=== PATIENT | male | born 1950 | race Caucasian/White ===

== ENCOUNTER 2016-05-24 20:19 | Emergency (ER) | payer MEDICARE, BC ==
[2006-07-03 04:04] VITALS: BP 110/66
[~2016-05-24] VITALS: Ht 177.8 cm; Wt 90.9 kg
[~2016-05-24 20:19] MED LIST: ANTIVERT 25MG25 MG PO; ASPIR-LOW81 MG PO; ASPIRIN E.C. 8181 MG PO; BENAZEPRIL PO; BENAZEPRIL10 MG PO; BUPROPION HCL150 M1 PO; CIPRO 500MG TA500 MG PO; EPA1000 MG PO; FLONASE NASAL S16 GM NS; KEPPRA 500MG500 MG PO; KEPPRA750 MG PO; KETOROLAC10 MG PO; LOTENSIN 1010 MG/TAB PO; MULTIVITAMIN PO; NATURE'S BL400 IU/ML PO; NEXIUM 40MG40 MG PEG; NORVASC 10MG10 MG PO; ONE DAILY1 TA1 PO; PRILOSEC 20MG20 MG PO; SAW PALMETTO160 MG PO; SAW PALMETTO450 MG PO; TEMAZEPAM15 MG PO; VITAMIN D1000 IU PO; XANAX 0.5MG0.5 MG PO; [UNRECOGNIZED DRUG - OTHER] PO
[2016-05-24 20:25] VITALS: TEMP 97.5
[2016-05-24 21:02] LABS: BASO # 0.1 (0.0-0.2); BASO % 0.8 % (0.0-2.0); EOS # 0.1 (0.0-0.7); EOS % 1.1 % (0-4.0); GRAN % 54.5 % (42.2-75.2); HEMOGLOBIN 15.6 g/dl (13.5-18.0); LYMPH # 2.6 (1.2-3.4); LYMPH % 35.6 % (20.0-51.0); MEAN CELL VOLUME 91 fl (80.0-100.0); MEAN CORPUSCULAR HEMOGLOBIN 31 pg (27.0-31.0); MEAN CORPUSCULAR HGB CONC 34 g/dl (33.0-37.0); MEAN PLATELET VOLUME 12.2 fl (7.4-10.4); MONO # 0.6 (0.1-0.6); MONO % 7.7 % (1.7-9.3); PLATELET COUNT 167 K/mm3 (130-400); RED BLOOD COUNT 5.04 M/mm3 (4.20-5.60); REDCELL DISTRIBUTION WIDTH-CV 13.6 % (11.5-14.5); WHITE BLOOD COUNT 7.3 K/mm3 (4.8-10.8)
[2016-05-24 21:23] LABS: ADJUSTED CALCIUM 9.8 mg/dL (8.4-10.2); ALANINE AMINOTRANSFERASE 35 U/L (21-72); ALBUMIN 4.8 gm/dL (3.5-5.0); ALKALINE PHOSPHATASE 127 U/L (50-136); ANION GAP 10 mmol/L (7-16); BILIRUBIN,TOTAL 0.8 mg/dL (0.0-1.0); BLOOD UREA NITROGEN 17 mg/dL (9-20); CALCIUM 10.4 mg/dL (8.4-10.2); CARBON DIOXIDE 25 mmol/L (22-30); CHLORIDE 104 mmol/L (98-107); CREATININE, serum 0.78 mg/dL (0.66-1.25); GLUCOSE 95 mg/dL (74-106); POTASSIUM 3.6 mmol/L (3.4-5.0); SODIUM 140 mmol/L (137-145); TOTAL PROTEIN 7.5 gm/dL (6.4-8.2)
[2016-05-24] MEDS ORDERED: HCTZ 25MG TAB25 MG PO (21:23)
[2016-05-24 21:38] LABS: TROPONIN-I < 0.012 ng/mL (0.000-0.034)
[2016-05-24 22:06] VITALS: BP 144/79; PULSE 84
== END 2016-05-24 22:15 | disposition home or self-care (01) ==
LOC: COL.ER 20:19
PROVIDERS: Family Medicine
DX: I10 Essential (primary) hypertension (principal)

== ENCOUNTER 2016-06-28 20:23 | Emergency (ER) | payer MEDICARE, BC ==
[2006-07-03 04:04] VITALS: BP 110/66
[~2016-06-28] VITALS: Ht 177.8 cm; Wt 95.5 kg
[~2016-06-28 20:23] MED LIST changes: +HCTZ 25MG TAB25 MG PO
[2016-06-28] MEDS ORDERED: PRILOSEC 20MG20 MG PO (20:27)
[2016-06-28] MEDS ORDERED: ATIVAN 0.50.5 MG/TAB PO (20:28)
[2016-06-28] MEDS ORDERED: PAXIL 10MG10 MG PO (20:28)
[2016-06-28] MEDS ORDERED: PAXIL 20MG20 MG PO (20:39)
[2016-06-28] MEDS ORDERED: ZOFRAN8 MG PO (20:57)
[2016-06-28 21:37] VITALS: BP 147/90; PULSE 85; TEMP 98.7
== END 2016-06-28 22:30 | disposition home or self-care (01) ==
LOC: COL.ER 20:23
DX: R10.84 Generalized abdominal pain (principal)

== ENCOUNTER 2017-10-11 20:48 | Inpatient (IN) | payer MEDICARE, BC ==
[~2017-10-11] VITALS: Ht 177.8 cm; Wt 96.4 kg
[2017-10-11] VITALS (57 sets, daily range): BP systolic 123; BP diastolic 82; PULSE 59; TEMP 97.2; O2SAT 92–100
[~2017-10-11 20:48] MED LIST changes: +ATIVAN 0.50.5 MG/TAB PO; +PAXIL 10MG10 MG PO; +PAXIL 20MG20 MG PO; +ZOFRAN8 MG PO
[2017-10-11] MEDS ORDERED: CALCIUM CARBON650 M2 PO (21:09)
[2017-10-11] MEDS ORDERED: NATURAL L-LYSI500 MG PO (21:09)
[2017-10-11] MEDS ORDERED: MAGNESIUM200 MG PO (21:10)
[2017-10-11 21:24] LABS: BASO % 0.5 % (0.0-2.0); EOS # 0.2 (0.0-0.7); EOS % 2.6 % (0-4.0); GRAN # 3.1 (1.4-6.5); GRAN % 52.1 % (42.2-75.2); HEMATOCRIT 40.5 % (42.0-52.0); HEMOGLOBIN 13.7 g/dl (13.5-18.0); LYMPH # 2.1 (1.2-3.4); LYMPH % 35.6 % (20.0-51.0); MEAN CELL VOLUME 95 fl (80.0-100.0); MEAN CORPUSCULAR HEMOGLOBIN 32 pg (27.0-31.0); MEAN CORPUSCULAR HGB CONC 34 g/dl (33.0-37.0); MEAN PLATELET VOLUME 11.8 fl (7.4-10.4); MONO # 0.5 (0.1-0.6); MONO % 8.9 % (1.7-9.3); PLATELET COUNT 145 K/mm3 (130-400); RED BLOOD COUNT 4.26 M/mm3 (4.20-5.60); REDCELL DISTRIBUTION WIDTH-CV 13.5 % (11.5-14.5)
[2017-10-11 21:30] LABS: INR 0.9 (0.8-3.0); PROTHROMBIN TIME 10.7 SECONDS (9.7-12.8)
[2017-10-11 21:32] LABS: PARTIAL THROMBOPLASTIN TIME 35.6 SECONDS (26.0-37.0)
[2017-10-11 21:34] LABS: ALBUMIN 3.5 gm/dL (3.5-5.0); BILIRUBIN,TOTAL 0.4 mg/dL (0.0-1.0); CREATININE, serum 0.81 mg/dL (0.66-1.25); POTASSIUM 3.7 mmol/L (3.4-5.0); TOTAL PROTEIN 5.9 gm/dL (6.4-8.2)
[2017-10-11 21:47] LABS: TROPONIN-I 0.056 ng/mL (0.000-0.034)
[2017-10-12] VITALS (766 sets, daily range): BP systolic 101–144; BP diastolic 56–77; PULSE 45–60; TEMP 97.1–98; O2SAT 86–100
[2017-10-12 06:08] LABS: BASO % 0.5 % (0.0-2.0); EOS # 0.1 (0.0-0.7); EOS % 2.4 % (0-4.0); GRAN # 2.5 (1.4-6.5); GRAN % 46.3 % (42.2-75.2); HEMATOCRIT 39.8 % (42.0-52.0); HEMOGLOBIN 13.3 g/dl (13.5-18.0); LYMPH # 2.3 (1.2-3.4); LYMPH % 41.4 % (20.0-51.0); MEAN CELL VOLUME 97 fl (80.0-100.0); MEAN CORPUSCULAR HEMOGLOBIN 32 pg (27.0-31.0); MEAN CORPUSCULAR HGB CONC 33 g/dl (33.0-37.0); MEAN PLATELET VOLUME 12.4 fl (7.4-10.4); MONO # 0.5 (0.1-0.6); MONO % 9.2 % (1.7-9.3); PLATELET COUNT 136 K/mm3 (130-400); RED BLOOD COUNT 4.12 M/mm3 (4.20-5.60); REDCELL DISTRIBUTION WIDTH-CV 13.7 % (11.5-14.5)
[2017-10-12 06:23] LABS: ALBUMIN 3.1 gm/dL (3.5-5.0); BILIRUBIN,TOTAL 0.5 mg/dL (0.0-1.0); CALCIUM 8.8 mg/dL (8.4-10.2); CHOLESTEROL RISK RATIO 3.7; CREATININE, serum 0.79 mg/dL (0.66-1.25); POTASSIUM 4.2 mmol/L (3.4-5.0); TOTAL PROTEIN 5.3 gm/dL (6.4-8.2)
[2017-10-12 06:24] LABS: COLLECTION METHOD CLEAN CATCH
[2017-10-12 06:37] LABS: PH 7 (5-8); SQUAMOUS EPITHELIAL 0-2 /hpf; URINE APPEARANCE Hazy; URINE BACTERIA Rare /hpf; URINE BILIRUBIN Negative (NEGATIVE); URINE BLOOD Negative (NEGATIVE); URINE COLOR Yellow; URINE GLUCOSE Negative (NEGATIVE); URINE KETONE Negative (NEGATIVE); URINE LEUKOCYTE ESTERASE Negative (NEGATIVE); URINE NITRATE Negative (NEGATIVE); URINE PROTEIN(semi-quant) Negative (NEGATIVE); URINE RBC 0-2 /hpf; URINE UROBILINOGEN Negative (NEGATIVE)
[2017-10-12 06:49] LABS: TROPONIN-I 0.245 ng/mL (0.000-0.034)
[2017-10-13] VITALS (14 sets, daily range): BP systolic 118–140; BP diastolic 64–83; PULSE 56–61; TEMP 97.2–98.1; O2SAT 95–99
[2017-10-13 06:02] LABS: BASO % 0.5 % (0.0-2.0); EOS # 0.2 (0.0-0.7); EOS % 2.2 % (0-4.0); GRAN # 5.5 (1.4-6.5); GRAN % 67.2 % (42.2-75.2); HEMATOCRIT 40.9 % (42.0-52.0); HEMOGLOBIN 13.7 g/dl (13.5-18.0); LYMPH # 1.8 (1.2-3.4); LYMPH % 21.8 % (20.0-51.0); MEAN CELL VOLUME 97 fl (80.0-100.0); MEAN CORPUSCULAR HEMOGLOBIN 33 pg (27.0-31.0); MEAN CORPUSCULAR HGB CONC 34 g/dl (33.0-37.0); MEAN PLATELET VOLUME 11.8 fl (7.4-10.4); MONO # 0.7 (0.1-0.6); MONO % 8.1 % (1.7-9.3); PLATELET COUNT 135 K/mm3 (130-400); RED BLOOD COUNT 4.22 M/mm3 (4.20-5.60); REDCELL DISTRIBUTION WIDTH-CV 13.9 % (11.5-14.5)
[2017-10-13 06:15] LABS: CALCIUM 8.5 mg/dL (8.4-10.2); CREATININE, serum 0.7 mg/dL (0.66-1.25)
[2017-10-13] MEDS ORDERED: BRILINTA90 MG PO (09:19)
[2017-10-13] MEDS ORDERED: NITROSTAT0.4 MG/TAB SL (09:20)
[2017-10-13] MEDS ORDERED: LOPRESSOR 225 MG/TAB PO (09:20)
[2017-10-13] MEDS ORDERED: LIPITOR 80MG80 MG PO (09:20)
[2017-10-13] MEDS ORDERED: ASPIRIN E.C. 8181 MG PO (09:21)
[2017-10-13] MEDS ORDERED: ZESTRIL 5MG5 MG PO (09:22)
== END 2017-10-13 11:00 | disposition home or self-care (01) | DRG 247 ==
LOC: COL.ER 20:48 → ICU 22:21
PROVIDERS: Emergency Medicine; Nurse Practitioner; Nurse Practitioner Family
PROC: 027034Z Dilation of Coronary Artery, One Artery with Drug-eluting Intraluminal Device, Percutaneous Approach (ICD-10-PCS; principal; 2017-10-12)
PROC: B2111ZZ Fluoroscopy of Multiple Coronary Arteries using Low Osmolar Contrast (ICD-10-PCS; 2017-10-12)
DX: I21.4 Non-ST elevation (NSTEMI) myocardial infarction (principal); Q23.1 Congenital insufficiency of aortic valve; I10 Essential (primary) hypertension; Z85.46 Personal history of malignant neoplasm of prostate; B91 Sequelae of poliomyelitis; I25.10 Atherosclerotic heart disease of native coronary artery without angina pectoris
CPT/HCPCS: 99223-AI; 99239; C9600; J0583; J1650; J2250; J3010; J7030; Q9967

== ENCOUNTER 2017-10-23 22:55 | Emergency (ER) | payer MEDICARE, BC ==
[2006-07-03 04:04] VITALS: BP 110/66
[~2017-10-23] VITALS: Ht 177.8 cm; Wt 90.9 kg
[~2017-10-23 22:55] MED LIST changes: +BRILINTA90 MG PO; +CALCIUM CARBON650 M2 PO; +LIPITOR 80MG80 MG PO; +LOPRESSOR 225 MG/TAB PO; +MAGNESIUM200 MG PO; +NATURAL L-LYSI500 MG PO; +NITROSTAT0.4 MG/TAB SL; -PAXIL 20MG20 MG PO; +ZESTRIL 5MG5 MG PO
[2017-10-23 23:01] VITALS: TEMP 96.7
[2017-10-23 23:17] LABS: BASO # 0.1 (0.0-0.2); BASO % 0.5 % (0.0-2.0); EOS # 0.2 (0.0-0.7); EOS % 2.3 % (0-4.0); GRAN # 5.1 (1.4-6.5); GRAN % 55.4 % (42.2-75.2); HEMATOCRIT 42.7 % (42.0-52.0); HEMOGLOBIN 14.7 g/dl (13.5-18.0); LYMPH % 32.7 % (20.0-51.0); MEAN CELL VOLUME 93 fl (80.0-100.0); MEAN CORPUSCULAR HEMOGLOBIN 32 pg (27.0-31.0); MEAN CORPUSCULAR HGB CONC 34 g/dl (33.0-37.0); MEAN PLATELET VOLUME 12.3 fl (7.4-10.4); MONO # 0.8 (0.1-0.6); MONO % 8.9 % (1.7-9.3); PLATELET COUNT 188 K/mm3 (130-400); REDCELL DISTRIBUTION WIDTH-CV 13.2 % (11.5-14.5)
[2017-10-23 23:23] LABS: INR 1.1 (0.8-3.0)
[2017-10-23 23:26] LABS: PARTIAL THROMBOPLASTIN TIME 38.2 SECONDS (26.0-37.0)
[2017-10-23 23:27] LABS: ALANINE AMINOTRANSFERASE 36 U/L (21-72); ALBUMIN 4.7 gm/dL (3.5-5.0); ALKALINE PHOSPHATASE 141 U/L (50-136); ANION GAP 15 mmol/L (7-16); AST,SGOT 25 U/L (15-37); BILIRUBIN,TOTAL 1.1 mg/dL (0.0-1.0); BLOOD UREA NITROGEN 18 mg/dL (9-20); CALCIUM 10.2 mg/dL (8.4-10.2); CARBON DIOXIDE 24 mmol/L (22-30); CHLORIDE 100 mmol/L (98-107); CREATININE, serum 0.83 mg/dL (0.66-1.25); GLUCOSE 103 mg/dL (74-106); LIPASE 128 U/L (23-300); POTASSIUM 3.5 mmol/L (3.4-5.0); SODIUM 138 mmol/L (137-145)
[2017-10-23 23:40] LABS: TROPONIN-I < 0.012 ng/mL (0.000-0.034)
[2017-10-24] MEDS ORDERED: TYLENOL 500MG500 MG PO (00:22)
[2017-10-24 05:10] VITALS: BP 112/68; PULSE 53
== END 2017-10-24 05:13 | disposition home or self-care (01) ==
LOC: COL.ER 22:55
PROVIDERS: Emergency Medicine
DX: R07.89 Other chest pain (principal); F41.9 Anxiety disorder, unspecified; K21.9 Gastro-esophageal reflux disease without esophagitis; I10 Essential (primary) hypertension; E78.5 Hyperlipidemia, unspecified; I25.2 Old myocardial infarction; I25.10 Atherosclerotic heart disease of native coronary artery without angina pectoris; Z95.5 Presence of coronary angioplasty implant and graft
CPT/HCPCS: J2060; J2405; J7030; Q9967

== ENCOUNTER 2018-11-25 09:57 | Emergency (ER) | payer MEDICARE, BC ==
[2006-07-03 04:04] VITALS: BP 110/66
[~2018-11-25] VITALS: Ht 177.8 cm; Wt 93.2 kg
[~2018-11-25 09:57] MED LIST changes: +PLAVIX 75MG TAB75 MG PO; +PROTONIX20 MG PO; +TOPROL XL 25MG25 MG PO; +TYLENOL 500MG500 MG PO; +ZOFRAN ODT4 MG PO
[2018-11-25 10:01] VITALS: TEMP 97
[2018-11-25 10:19] LABS: BASO % 0.5 % (0.0-2.0); EOS # 0.1 (0.0-0.7); EOS % 1.3 % (0-4.0); GRAN # 3.7 (1.4-6.5); GRAN % 60.1 % (42.2-75.2); HEMATOCRIT 44.9 % (42.0-52.0); HEMOGLOBIN 14.9 g/dl (13.5-18.0); LYMPH # 1.9 (1.2-3.4); MEAN CELL VOLUME 98 fl (80.0-100.0); MEAN CORPUSCULAR HEMOGLOBIN 32 pg (27.0-31.0); MEAN CORPUSCULAR HGB CONC 33 g/dl (33.0-37.0); MEAN PLATELET VOLUME 11.9 fl (7.4-10.4); MONO # 0.5 (0.1-0.6); MONO % 7.9 % (1.7-9.3); PLATELET COUNT 149 K/mm3 (130-400); REDCELL DISTRIBUTION WIDTH-CV 13.9 % (11.5-14.5)
[2018-11-25 10:27] LABS: ALANINE AMINOTRANSFERASE 23 U/L (21-72); ALBUMIN 4.5 gm/dL (3.5-5.0); ALKALINE PHOSPHATASE 112 U/L (50-136); ANION GAP 9 mmol/L (7-16); AST,SGOT 25 U/L (15-37); BILIRUBIN,TOTAL 0.6 mg/dL (0.0-1.0); BLOOD UREA NITROGEN 19 mg/dL (9-20); CALCIUM 9.5 mg/dL (8.4-10.2); CARBON DIOXIDE 30 mmol/L (22-30); CHLORIDE 105 mmol/L (98-107); CREATININE, serum 0.71 (0.66-1.25); GLUCOSE 99 mg/dL (74-106); LIPASE 89 U/L (23-300); SODIUM 143 mmol/L (137-145)
[2018-11-25 10:49] LABS: TROPONIN-I < 0.012 ng/mL (0.000-0.035)
[2018-11-25] MEDS ORDERED: LOPRESSOR 225 MG/TAB PO (13:39)
[2018-11-25] MEDS ORDERED: CARAFATE 1GM1 G PO (13:57)
[2018-11-25 14:09] VITALS: BP 104/66; PULSE 55
== END 2018-11-25 14:09 | disposition home or self-care (01) ==
LOC: COL.ER 09:57
PROVIDERS: Emergency Medicine
DX: R10.13 Epigastric pain (principal); R07.9 Chest pain, unspecified; I10 Essential (primary) hypertension; E78.5 Hyperlipidemia, unspecified; K21.9 Gastro-esophageal reflux disease without esophagitis; I25.10 Atherosclerotic heart disease of native coronary artery without angina pectoris; Z79.82 Long term (current) use of aspirin; Z79.02 Long term (current) use of antithrombotics/antiplatelets; Z86.73 Personal history of transient ischemic attack (TIA), and cerebral infarction without residual deficits; Z95.5 Presence of coronary angioplasty implant and graft
CPT/HCPCS: C9113; J2270; J2405; J7030

== ENCOUNTER 2021-08-22 22:10 | Observation (INO) | payer MEDICARE, BC ==
[~2021-08-22] VITALS: Ht 177.8 cm; Wt 88.4 kg
[~2021-08-22 22:10] MED LIST changes: +CARAFATE 1GM1 G PO
[2021-08-22 22:46] LABS: BASO % 0.4 % (0.0-2.0); EOS # 0.1 K/mm3 (0.0-0.7); EOS % 2.1 % (0.0-4.0); GRAN # 2.4 K/mm3 (1.4-6.5); GRAN % 45.7 % (42.2-75.2); HEMATOCRIT 39.3 % (42.0-52.0); HEMOGLOBIN 13.6 g/dl (13.5-18.0); LYMPH # 2.1 K/mm3 (1.2-3.4); MEAN CELL VOLUME 98 fl (80.0-100.0); MEAN CORPUSCULAR HEMOGLOBIN 34 pg (27-31); MEAN CORPUSCULAR HGB CONC 35 g/dl (33.0-37.0); MEAN PLATELET VOLUME 11.6 fl (7.4-10.4); MONO # 0.6 K/mm3 (0.1-0.6); MONO % 10.6 % (1.7-9.3); PLATELET COUNT 130 K/mm3 (130-400); REDCELL DISTRIBUTION WIDTH-CV 13.4 % (11.5-14.5)
[2021-08-22 23:01] LABS: ALANINE AMINOTRANSFERASE 31 U/L (0-55); ALBUMIN 4.3 gm/dL (3.4-4.8); ALKALINE PHOSPHATASE 117 U/L (40-150); ANION GAP 9 mmol/L (7-16); AST,SGOT 22 U/L (5-34); BILIRUBIN,TOTAL 0.5 mg/dL (0.2-1.2); BLOOD UREA NITROGEN 21 mg/dL (8-26); CALCIUM 9.2 mg/dL (8.4-10.2); CARBON DIOXIDE 25 mmol/L (23-31); CHLORIDE 108 mmol/L (98-107); CREATININE, serum 0.82 mg/dL (0.72-1.25); GLUCOSE 104 mg/dL (70-99); SODIUM 142 mmol/L (136-145); TOTAL PROTEIN 6.2 gm/dL (6.2-8.1)
[2021-08-22 23:10] LABS: TROPONIN-I < 0.010 ng/mL (0.00-0.033)
[2021-08-23] MEDS ORDERED: MAGNESIUM200 MG PO (01:44)
[2021-08-23] MEDS ORDERED: PROTONIX 40MG T40 MG PO (01:45)
[2021-08-23] MEDS ORDERED: COZAAR 25MG25 MG/TAB PO (01:52)
[2021-08-23] MEDS ORDERED: TOPROL XL 25MG25 MG PO (02:05)
[2021-08-23 02:30] LABS: PROTHROMBIN TIME 11.2 SECONDS (9.7-12.8)
[2021-08-23 02:33] LABS: PARTIAL THROMBOPLASTIN TIME 30.5 SECONDS (26.0-37.0)
[2021-08-23 06:55] LABS: BASO % 0.5 % (0.0-2.0); EOS # 0.1 K/mm3 (0.0-0.7); EOS % 2.4 % (0.0-4.0); GRAN # 1.8 K/mm3 (1.4-6.5); HEMOGLOBIN 13.1 g/dl (13.5-18.0); LYMPH # 1.8 K/mm3 (1.2-3.4); LYMPH % 44.3 % (20.0-51.0); MEAN CELL VOLUME 100 fl (80.0-100.0); MEAN CORPUSCULAR HEMOGLOBIN 34 pg (27-31); MEAN CORPUSCULAR HGB CONC 34 g/dl (33.0-37.0); MEAN PLATELET VOLUME 12.3 fl (7.4-10.4); MONO # 0.4 K/mm3 (0.1-0.6); MONO % 9.6 % (1.7-9.3); PLATELET COUNT 118 K/mm3 (130-400); RED BLOOD COUNT 3.91 M/mm3 (4.20-5.60); REDCELL DISTRIBUTION WIDTH-CV 13.6 % (11.5-14.5)
[2021-08-23 07:14] LABS: ANION GAP 7 mmol/L (7-16); BLOOD UREA NITROGEN 20 mg/dL (8-26); CALCIUM 8.8 mg/dL (8.4-10.2); CARBON DIOXIDE 26 mmol/L (23-31); CHLORIDE 109 mmol/L (98-107); CHOLESTEROL 135 mg/dL (0-199); CHOLESTEROL RISK RATIO 2.5; CREATININE, serum 0.78 mg/dL (0.72-1.25); GLUCOSE 93 mg/dL (70-99); HDL CHOLESTEROL 52 mg/dL (40-60); LDL CHOLESTEROL 72 mg/dL; POTASSIUM 3.8 mmol/L (3.5-4.5); SODIUM 142 mmol/L (136-145); TRIGLYCERIDE 55 mg/dL (0-149)
[2021-08-23 07:20] LABS: TROPONIN-I 6 HR POST INITIAL < 0.010 ng/mL (0.00-0.033)
[2021-08-23 07:59] VITALS: BP 131/67; PULSE 50; TEMP 98.3
[2021-08-23 08:33] VITALS: BP 145/75; PULSE 50; TEMP 98.3
[2021-08-23 11:04] VITALS: BP 127/63; PULSE 50; TEMP 98.4
--- NOTE | 2021-08-23 11:20 | NUR ---
CORINNA met with the patient to discuss discharge plan. The patient lives in [place] with his daughter, Maria Eugenia (ph#[phone]). He states that Maria Eugenia has been living with him, since his in October. He states that Maria Eugenia works at [employer], but got a great job offer at [employer] and she will be moving to [place] next week. He states that he will be safe at home alone. He reports independence with ADLs and does not have any DME. The patient's PCP is Dr. Fco Chawla and he receives his medications from [facility]. He reports no difficulties obtaining his meds. The patient does not have a DPOA-HC, but he is interested in obtaining a form. CORINNA provided. The patient is and he states that he has one child: Maria Eugenia. The patient plans on returning home with his daughter upon discharge. No additional needs at this time. *Discharge plan: home with daughter*
--- NOTE | 2021-08-23 13:24 | NUR ---
First visit from the floral artist. No needs right now.
--- NOTE | 2021-08-23 13:37 | NUR ---
recieved call about pt hr being 44. pt denies dizziness or lightheadedness
--- NOTE | 2021-08-23 15:03 | NUR ---
DISCHARGE EDUCATION PROVIDED TO PT, TELE AND IV DISCONTINUED, NO OTHER NEEDS
--- NOTE | 2021-08-23 15:21 | NUR ---
PT ESCORTED OUT VIA WHEELCHAIR WITH PT BELONGINGS. NO OTHER NEEDS
== END 2021-08-23 15:22 | disposition home or self-care (01) ==
LOC: COL.ER 22:10 → MEDICAL 08-23 02:12
PROVIDERS: Emergency Medicine; Nurse Practitioner Family; ADMIT Internal Medicine
DX: R07.89 Other chest pain (principal); I25.10 Atherosclerotic heart disease of native coronary artery without angina pectoris; I21.4 Non-ST elevation (NSTEMI) myocardial infarction; R00.1 Bradycardia, unspecified; I44.0 Atrioventricular block, first degree; I77.810 Thoracic aortic ectasia; I35.8 Other nonrheumatic aortic valve disorders; I10 Essential (primary) hypertension; E78.5 Hyperlipidemia, unspecified; K21.9 Gastro-esophageal reflux disease without esophagitis; G45.9 Transient cerebral ischemic attack, unspecified; K86.2 Cyst of pancreas; R53.1 Weakness; F41.9 Anxiety disorder, unspecified; Z86.12 Personal history of poliomyelitis; Z79.82 Long term (current) use of aspirin; Z79.899 Other long term (current) drug therapy
CPT/HCPCS: G0378; J1650; J1885; J2270; J7030; Q9967